=== PATIENT | male | born 1940 | race Caucasian/White ===

== ENCOUNTER 2017-06-30 09:41 | Emergency (ER) | payer MEDICARE ==
[2017-06-30 10:11] VITALS: BP 166/78
--- NOTE | 2017-07-06 14:50 | UC ---
Skin Complaint HPI - HPI Summary HPI Summary: pt with h/o of chronic venous stasis that was stable presents 1 week after he got hit in the back of the rt leg with tree branch. the branch broke the skin. 2 days ago the surrounding skin has become increasingly red, swollen and tender. no drainage. - History of Current Complaint Chief Complaint: UCSkin Time Seen by Provider: 06/30/17 10:19 Stated Complaint: RIGHT LEG COMPLAINT Hx Obtained From: Patient, Family/Dermatology Physician Assistant Onset/Duration: Gradual Onset Skin Exposure Onset/Duration: Days Ago, Worse Since: - progressively Timing: Constant Onset Severity: Mild Current Severity: Moderate Pain Intensity: 0 Pain Scale Used: 0-10 Numeric Location: Discrete, Other - post calf Character: Swelling, Pain, Redness Aggravating Factor(s): Nothing Alleviating Factor(s): Nothing Associated Signs & Symptoms: Positive: Tenderness. Negative: Nausea, Vomiting, Shivering, Difficulty Breathing, Fever, Chills, Cough, Wheezing, Chest Pain, Hoarseness, Throat Tightening, Rash, Abdominal Pain, Lightheadedness, Syncope, Drainage, Bruising, Red Streaks Related History: Trauma - Allergy/Home Medications Allergies/Adverse Reactions: Allergies Allergy/AdvReac Type Severity Reaction Status Date / Time No Known Allergies Allergy Verified 06/30/17 10:01 Review of Systems Constitutional: Negative Skin: Other - see hpi ENT: Negative Respiratory: Negative Cardiovascular: Negative Gastrointestinal: Negative Neurological: Negative Psychological: Anxious All Other Systems Reviewed And Are Negative: Yes PMH/Surg Hx/FS Hx/Imm Hx Endocrine History: Diabetes, Thyroid Disease Cardiovascular History: Hypertension - Surgical History Surgical History: Yes Surgery Procedure, Year, and Place: Left Knee x2 procedures. Gall bladder. Appendix. T&A - Family History Known Family History: Positive: Hypertension - Social History Occupation: Retired Lives: With Family Alcohol Use: Rare Substance Use Type: None Smoking Status (MU): Former Smoker Amount Used/How Often: ~ 1 ppd - 5 ppd Length of Time of Smoking/Using Tobacco: started smoking ~ age 12, smoked on and off When Did the Patient Quit Smoking/Using Tobacco: quit 2000 - Immunization History Most Recent Influenza Vaccination: Fall 2014 Most Recent Tetanus Shot: within past year Physical Exam Triage Information Reviewed: Yes Appearance: Well-Appearing, No Pain Distress, Well-Nourished Vital Signs: Initial Vital Signs Temp 98.7 F 06/30/17 10:07 Pulse 69 06/30/17 10:07 Resp 20 06/30/17 10:07 BP 166/78 06/30/17 10:07 Pulse Ox 96 06/30/17 10:07 Vital Signs Reviewed: Yes Eyes: Positive: Conjunctiva Clear. Negative: Discharge ENT: Positive: Hearing grossly normal. Negative: Muffled voice, Hoarse voice Neck: Positive: Supple Respiratory: Positive: Lungs clear, Normal breath sounds, No respiratory distress, No accessory muscle use Cardiovascular: Positive: RRR, No Murmur Skin: Positive: breakdown, significant lesion(s) - eveidence of chronic venous stasis bl le. ~12cm area of erythema, swelling, tenderness with quarter size lesion with granulation tissue. entire lesion is weeping., Other Course/Dx - Diagnoses Provider Diagnoses: venous stasis, wound infection Discharge - Sign-Out/Discharge Documenting (check all that apply): Discharge/Admit/Transfer - Discharge Plan Condition: Stable Disposition: HOME Prescriptions: Cephalexin CAP* [Keflex CAP*] 500 mg PO BID #20 cap Patient Education Materials: Wound Infection (ED) Referrals: Jhonatan Jonas MD [Primary Care Provider] - 2 Days (THIS FOLLOW UP VISIT IS IMPORTANT. WE WANT TO KNOW THAT YOU ARE IMPROVING AFTER 2 DAYS OF TREATMENT. IF YOU CAN NOT GET IN TO YOUR PCP'S OFFICE, RETURN HERE FOR FOLLOW UP.) Additional Instructions: ANTIBIOTICS ARE NOT CURRENTLY INDICATED FOR YOUR CONDITION. HOWEVER, IF YOUR SYMPTOMS WORSEN OR PERSIST FOR OVER THE NEXT 3-5 DAYS, YOU CAN TAKE THE FOLLOWING MEDICATION: CEPHALEXIN: The antibiotic you've been prescribed is a member of the cephalosporin class. This type of antibiotic covers a wide variety of infections, including those of the skin, lungs, and urinary tract. It's useful for staph infections. This antibiotic is slightly similar to the penicillin family. In rare cases , a person who is allergic to penicillin will also be allergic to this medication. If you have had a severe allergic reaction to penicillin, and have not taken this antibiotic since that time, notify your doctor. Antibiotics which cover many germs ("broad spectrum" antibiotics) are more likely to cause diarrhea or "yeast" infections. Women prone to vaginal yeast problems may suffer an attack after taking this antibiotic. In infants, oral thrush (white spots "stuck" on the cheek) or yeast diaper rash may result. See your doctor if these problems occur. Call at once if you develop itching, hives , shortness of breath, or lightheadedness. ANYTIME YOU TAKE AN ANTIBIOTIC, IT IS IMPORTANT TO REPLENISH THE BODY'S SUPPLY OF "GOOD BACTERIA." YOU CAN GET GOOD BACTERIA FROM HIGH QUALITY CULTURED FOODS SUCH LOCAL YOGURT, SOUR KRAUT, YO JERRY, NATURALLY FERMENTED PICKLES AND PROBIOTIC DRINKS. YOU CAN ALSO GET GOOD BACTERIA FROM A PROBIOTIC SUPPLEMENT. WE ARE REFERRING YOU TO WOUND CARE TO FOLLOW THE HEALING PROCESS IN YOUR LEG. PLEASE CALL AND MAKE AN APPOINTMENT TO BE SEEN [facility]. IF YOU ARE NOT ABLE TO GET AN APPOINTMENT WITHIN THE NEXT 2 DAYS, RETURN HERE FOR FOLLOW UP. THIS FOLLOW UP VISIT IS IMPORTANT. WE WANT TO KNOW THAT YOU ARE IMPROVING AFTER 2 DAYS OF TREATMENT. [facility] [address] [place] [id number] [facility] Address: [address] [place] [id number] Open today [id number] - Billing Disposition and Condition Condition: STABLE Disposition: HOME
== END 2017-06-30 11:23 | disposition home or self-care (01) ==
LOC: UCCORT 09:41
DX: I87.8 Other specified disorders of veins (principal); S81.801A Unspecified open wound, right lower leg, initial encounter; L08.9 Local infection of the skin and subcutaneous tissue, unspecified; W22.8XXA Striking against or struck by other objects, initial encounter; Y93.9 Activity, unspecified; Y92.9 Unspecified place or not applicable; E11.9 Type 2 diabetes mellitus without complications; Z79.84 Long term (current) use of oral hypoglycemic drugs; E07.9 Disorder of thyroid, unspecified; I10 Essential (primary) hypertension; Z87.891 Personal history of nicotine dependence
CPT/HCPCS: 99212; G0463